=== PATIENT | female | born 1985 | race Hispanic/Latino ===

== ENCOUNTER 2019-01-08 20:49 | Emergency (ER) | payer OTHER ==
[2019-01-08 21:30] LABS: Pregnancy Test - Urine (BHCG) Negative (Negative); Pregu Control Background? CLEAR/WHITE (CLR/WHITE); Pregu Control Bar Appear? YES (CONTROL BAR); Specific Gravity 1.016 (1.002-1.036)
--- NOTE | 2019-01-08 21:30 | RAD ---
Exam: Single view of the pelvis HISTORY: Falling on ground with pelvic pain COMPARISON: None FINDINGS: A single view the pelvis shows no evidence of acute fracture or dislocation. No degenerativ e changes seen in either hip. IMPRESSION: No evidence of acute osseous abnormality.
--- NOTE | 2019-01-08 21:31 | RAD ---
EXAM: 3 views of the sacrum/coccyx HISTORY: Fall on ground with pelvic pain COMPARISON: None FINDINGS: 3 views of the sacrum/coccyx shows a questionable fracture of the distal sacrum just above the coccyx. The sacral alae are symmetric. The sacroiliac joints and pubic symphysis are unremarkable. IMPRESSION: Questionable minimally displaced fracture of the distal sacrum
[2019-01-08] MEDS ORDERED: Ketorolac Tromethamine 60 MG/2 ML VIAL ONE (21:38)
--- NOTE | 2019-01-08 21:58 | RAD ---
EXAM: 2 views of the right forearm HISTORY: Forearm pain after fall COMPARISON: None FINDINGS: There is no evidence of acute fracture or dislocation. No soft tissue swelling is seen. No degenerative changes are seen in the wrist or elbow. IMPRESSION: No evidence of acute osseous abnormality.
[2019-01-08] MEDS ORDERED: HYDROcodone/Acetaminophen 5/325 mg Tablet ONE (22:22)
== END 2019-01-08 22:37 | disposition home or self-care (01) ==
LOC: ERS 20:49
DX: S32.10XA Unspecified fracture of sacrum, initial encounter for closed fracture (principal); S32.2XXA Fracture of coccyx, initial encounter for closed fracture; W17.89XA Other fall from one level to another, initial encounter
CPT/HCPCS: 72190; 72220; 81025; 96372; J1885